=== PATIENT | female | born 2000 | race Caucasian/White ===

== ENCOUNTER 2023-06-22 17:08 | Day surgery (SDC) | payer BC, OTHER ==
[2023-06-22 17:34] VITALS: BMI 42.4
[2023-06-22 18:01] LABS: Fetal Membranes Rupture No Membranes Rupture (No Rupture)
[2023-06-22] MEDS ORDERED: hydrALAZINE 20 MG/ML VIAL SLOW IVP PRN (18:11)
[2023-06-22 18:18] LABS: Bilirubin Neg (Negative); Blood, Urine Negative (Negative); Clarity Slightly Cloudy (Clear); Glucose, Urine (Dipstick) Normal (Negative); Ketone, Urine Negative (Negative); Leukocyte 500 (Negative); Nitrite Negative (Negative); Protein, Urine (Dipstick) 30 mg/dl (Neg-Trace); Specific Gravity, Urine 1.025 (1.005-1.030)
[2023-06-22 18:28] LABS: CAUTI Indications for Culture Pregnancy; RBC/HPF 0-3 HPF (0-3)
[2023-06-22 18:29] LABS: Bacteria/HPF 1+ HPF (None Seen); Mucous/LPF 1+ LPF (<2+); Transitional Epithelial 0-3 HPF (None Seen)
[2023-06-22 18:30] LABS: Calcium Oxalate Crystals Rare HPF (None Seen)
[2023-06-22 18:31] LABS: Urine Culture Reflex Yes Yes
== END 2023-06-22 19:37 | disposition home or self-care (01) ==
LOC: CSHLD/OP 17:08
PROVIDERS: ATTEND Obstetrics & Gynecology
DX: O23.593 Infection of other part of genital tract in pregnancy, third trimester (principal); O99.413 Diseases of the circulatory system complicating pregnancy, third trimester; O99.343 Other mental disorders complicating pregnancy, third trimester; O99.613 Diseases of the digestive system complicating pregnancy, third trimester; O99.213 Obesity complicating pregnancy, third trimester; O47.03 False labor before 37 completed weeks of gestation, third trimester; F41.9 Anxiety disorder, unspecified; F32.A Depression, unspecified; K21.9 Gastro-esophageal reflux disease without esophagitis; R00.0 Tachycardia, unspecified; Z79.899 Other long term (current) drug therapy; Z3A.36 36 weeks gestation of pregnancy
CPT/HCPCS: 81001; 84112; 87086; 87480; 87510; 87660; 99285

== ENCOUNTER 2023-07-12 05:30 | Inpatient (IN) | payer BC, OTHER ==
[2023-07-12 06:20] VITALS: BMI 43.3
[2023-07-12] MEDS ORDERED: Carboprost 250 MCG/ML AMP IM PRN (06:27)
[2023-07-12] MEDS ORDERED: Methylergonovine 0.2 MG/ML VIAL IM PRN ×2 (06:27→17:03)
[2023-07-12] MEDS ORDERED: Ondansetron PF 4 MG/2 ML Vial IVP PRN ×2 (06:27→10:11)
[2023-07-12] MEDS ORDERED: hydrALAZINE 20 MG/ML VIAL SLOW IVP PRN ×2 (06:27→17:03)
[2023-07-12] MEDS ORDERED: HYDROcodone/Acetaminophen 5/325 mg Tablet PO PRN ×3 (06:27→17:03)
[2023-07-12] MEDS ORDERED: Misoprostol 200 MCG TAB PR PRN (06:27)
[2023-07-12] MEDS ORDERED: Promethazine HCl 25 MG/ML VIAL IM PRN ×2 (06:27→10:11)
[2023-07-12] MEDS ORDERED: Lidocaine 1% (PF) 30 ML VIAL SC PRN (06:27)
[2023-07-12] MEDS ORDERED: Ibuprofen 800 MG TAB PO PRN (06:27)
[2023-07-12] MEDS ORDERED: Diphenoxylate HCl/Atropine Tablet PO PRN ×2 (06:27)
[2023-07-12] MEDS ORDERED: Oxytocin 30 units/NS 500 ML 500 ML IV SCH ×3 (06:30→17:03)
[2023-07-12] MEDS: Lactated Ringer's 1,000 ML IV SCH ×2 (06:52→17:02)
[2023-07-12 07:22] LABS: Hematocrit 34.1 % (34.9-44.5); Hemoglobin 11.7 g/dL (12.0-15.5); Mean Corpuscular HGB CONC 34.3 g/dL (32.0-36.0); Mean Corpuscular Hemoglobin 29.9 pg (27.0-33.0); Mean Corpuscular Volume 87.2 fl (81.6-98.3); Mean Platelet Volume 10.8 fl (7.4-10.4); Platelet Count 191 10x3/uL (150-450); Red Blood Cell (RBC) Count 3.91 10x6/uL (3.90-5.03); White Blood Cell (WBC) Count 7.3 10x3/uL (3.5-10.5)
[2023-07-12 07:50] LABS: HBSAg Index 0.17 S/CO (0-0.99); Hep B Surf Ag - L&D Non-Reactive S/CO (NonReactive)
[2023-07-12 07:51] LABS: Syphilis Antibody Nonreactive (Nonreactive); Syphilis Antibody Index 0.09 S/CO (<1.00 Non-Reactive)
[2023-07-12] MEDS ORDERED: fentaNYL/Ropivacaine Epidural 100 ML ONE (08:17)
[2023-07-12] MEDS ORDERED: Bupivacaine 0.25% HCL 30 ML VIAL ONE (09:00)
[2023-07-12] MEDS ORDERED: diphenhydrAMINE 50 MG/ML VIAL IVP PRN (10:11)
[2023-07-12] MEDS ORDERED: Naloxone HCl 0.4 mg/ml Vial IVP PRN ×2 (10:11)
[2023-07-12] MEDS ORDERED: Moisturizing Cream (Eucerin) 113 GM JAR TOP PRN (10:11)
[2023-07-12] MEDS ORDERED: Acetaminophen 325 MG TAB PO PRN (10:11)
[2023-07-12] MEDS ORDERED: ePHEDrine Sulfate 50 MG/10 ML VIAL SLOW IVP PRN (10:11)
[2023-07-12] MEDS ORDERED: Lactated Ringer's 500 ML IV PRN (10:11)
[2023-07-12] MEDS ORDERED: Communication Order-Pharmacy FS SCH (10:15)
[2023-07-12] MEDS ORDERED: fentaNYL 2 mcg/Ropivacaine 0.2% Epidural 100 ML CADD EPIDURAL SCH (10:15)
[2023-07-12] MEDS ORDERED: Lanolin Ointment 7 GM TUBE TOP PRN (17:03)
[2023-07-12] MEDS ORDERED: Bisacodyl 10 MG SUPP PR PRN (17:03)
[2023-07-12] MEDS ORDERED: Milk Of Magnesia 30 ML UDCUP PO PRN (17:03)
[2023-07-12] MEDS ORDERED: Benzocaine-Menthol 82.5 ML CAN TOP PRN (17:03)
[2023-07-12] MEDS ORDERED: Misoprostol 200 MCG TAB VAG PRN (17:03)
[2023-07-12] MEDS ORDERED: Boostrix 0.5 ML (Tdap) VIAL (>/=7 yrs of age) IM ONE (17:03)
[2023-07-12] MEDS ORDERED: Ferrous Sulfate 325 MG TAB PO SCH (18:00)
[2023-07-12] MEDS: Docusate 100 MG CAP PO SCH (21:21)
[2023-07-12] MEDS: Ibuprofen 800 MG TAB PO SCH (21:21)
[2023-07-13] MEDS: HYDROcodone/Acetaminophen 5/325 mg Tablet PO PRN ×2 (00:44→15:04)
[2023-07-13] MEDS: Ibuprofen 800 MG TAB PO SCH ×3 (06:07→21:29)
[2023-07-13] MEDS: Prenatal Vitamin 1 TAB PO SCH (08:31)
[2023-07-13] MEDS: Ferrous Sulfate 325 MG TAB PO SCH ×2 (08:31→16:59)
[2023-07-13] MEDS: Docusate 100 MG CAP PO SCH ×2 (08:31→21:29)
[2023-07-14] MEDS: Ibuprofen 800 MG TAB PO SCH (05:06)
[2023-07-14] MEDS: Ferrous Sulfate 325 MG TAB PO SCH (07:04)
[2023-07-14 07:56] VITALS: BP 119/70; TEMP 98
[2023-07-14] MEDS: Prenatal Vitamin 1 TAB PO SCH (08:13)
[2023-07-14] MEDS: Docusate 100 MG CAP PO SCH (08:13)
== END 2023-07-14 12:55 | disposition home or self-care (01) | DRG 807 ==
LOC: MERGE 05:30 → CSHLD 05:41 → CSHPP 16:39
PROVIDERS: ADMIT Obstetrics & Gynecology; ATTEND Obstetrics & Gynecology
PROC: 10E0XZZ Delivery of Products of Conception, External Approach (ICD-10-PCS; principal; 2023-07-12)
PROC: 3E033XZ Introduction of Vasopressor into Peripheral Vein, Percutaneous Approach (ICD-10-PCS; 2023-07-12)
DX: O80 Encounter for full-term uncomplicated delivery (principal); Z37.0 Single live birth; Z3A.39 39 weeks gestation of pregnancy
CPT/HCPCS: 36415; 85027; 86780; 86850; 86900; 86901; 87340; J0665; J2590; J7120